=== PATIENT | male | born 1965 | race Caucasian/White ===

== ENCOUNTER 2016-09-19 19:29 | Emergency (ER) | payer BC, OTHER ==
[~2016-09-19] VITALS: Ht 172.7 cm; Wt 87.3 kg
[2016-09-19 19:31] VITALS: BP 122/79
[2016-09-19] MEDS ORDERED: DIPH,PERTUSS(ACELL),TET VAC/PF 0.5 ML IM-VACC ONE ×2 (19:52→20:00)
[2016-09-19] MEDS ORDERED: BACITRACIN ZINC OINT 500U/GM, 0.9 GM ONE (19:59)
== END 2016-09-19 20:22 | disposition home or self-care (01) ==
LOC: ED 20:16
DX: S50.812A Abrasion of left forearm, initial encounter (principal); S50.811A Abrasion of right forearm, initial encounter; W54.0XXA Bitten by dog, initial encounter; Y93.89 Activity, other specified; Y92.098 Other place in other non-institutional residence as the place of occurrence of the external cause; Y99.8 Other external cause status
CPT/HCPCS: 90471; 90715